=== PATIENT | male | born 1985 | race Two or more races ===

== ENCOUNTER 2022-08-02 15:09 | Emergency (ER) | payer MEDICARE, OTHER ==
[~2022-08-02] VITALS: Ht 165.1 cm; Wt 114.7 kg
[2022-08-02 18:03] VITALS: BP 101/52
[2022-08-02] MEDS ORDERED: SEMA14TA PO ×3 (18:54→19:17)
[2022-08-02] MEDS ORDERED: CLOZ50TA4 PO ×3 (18:54→19:17)
[2022-08-02] MEDS ORDERED: OLME1TAB73 PO ×3 (18:54→19:17)
[2022-08-02] MEDS ORDERED: METO-289 PO ×3 (18:54→19:17)
[2022-08-02] MEDS ORDERED: CHLO25TA2 PO ×3 (18:54→19:17)
[2022-08-02] MEDS ORDERED: ATOR10TA PO ×3 (18:54→19:17)
[2022-08-02] MEDS ORDERED: SPIR25TA8 PO ×3 (18:54→19:17)
[2022-08-02] MEDS ORDERED: METF-370 PO ×3 (18:54→19:17)
[2022-08-02] MEDS ORDERED: SERT25TA84 PO ×3 (18:54→19:17)
[2022-08-02] MEDS ORDERED: AML5T PO ×3 (18:54→19:17)
[2022-08-02] MEDS ORDERED: RISP2TAB62 PO ×3 (18:54→19:17)
[2022-08-02] MEDS ORDERED: GLYC1TAB18 PO ×3 (18:54→19:17)
[2022-08-02] MEDS ORDERED: DIVA1TAB59 PO ×3 (18:54→19:17)
== END 2022-08-02 19:02 | disposition home or self-care (01) ==
LOC: ER 15:09
DX: I10 Essential (primary) hypertension (principal); E11.9 Type 2 diabetes mellitus without complications; E78.5 Hyperlipidemia, unspecified; K21.9 Gastro-esophageal reflux disease without esophagitis; F32.A Depression, unspecified; Z76.0 Encounter for issue of repeat prescription; Z79.899 Other long term (current) drug therapy

== ENCOUNTER 2022-10-02 13:52 | Emergency (ER) | payer MEDICARE, OTHER ==
[~2022-10-02] VITALS: Ht 165.1 cm; Wt 123.0 kg
[~2022-10-02 13:52] MED LIST: AML5T PO; ATOR10TA PO; CHLO25TA2 PO; CLOZ50TA4 PO; DIVA1TAB59 PO; GLYC1TAB18 PO; METF-370 PO; METO-289 PO; OLME1TAB73 PO; RISP2TAB62 PO; SEMA14TA2 PO; SERT25TA84 PO; SPIR25TA8 PO
[2022-10-02 14:07] VITALS: BP 148/93
[2022-10-02] MEDS ORDERED: CLOZ50TA4 PO (14:57)
== END 2022-10-02 15:05 | disposition home or self-care (01) ==
LOC: ER 13:52
DX: F20.9 Schizophrenia, unspecified (principal); Z76.0 Encounter for issue of repeat prescription